=== PATIENT | female | born 1990 | race African-American/Black ===

== ENCOUNTER 2017-01-16 15:10 | Emergency (ER) | payer OTHER ==
[2017-01-16 15:10] VITALS: BP 147/93
[2017-01-16 15:51] LABS: BASO # 0.1 x10^3/uL (0.0-0.2); BASO % 1 % (0-3); EOS % 0 % (0-3); HEMATOCRIT 40.3 % (36.0-47.0); HEMOGLOBIN 13.8 g/dL (12.0-15.5); LYMPH # 1.2 x10^3/uL (1.0-4.8); LYMPH % 10 % (24-48); MEAN CORPUSCULAR HEMOGLOBIN 29 pg (25-35); MEAN CORPUSCULAR HGB CONC 34 g/dL (31-37); MEAN CORPUSCULAR VOLUME 85 fL (79-100); MONO # 0.6 x10^3/uL (0.0-1.1); MONO % 5 % (0-9); NEUT % 83 % (31-73); PLATELET COUNT 227 x10^3/uL (140-400); RED BLOOD COUNT 4.74 x10^6/uL (3.50-5.40); RED CELL DISTRIBUTION WIDTH 13.4 % (11.5-14.5)
[2017-01-16 16:02] LABS: ALBUMIN 3.2 g/dL (3.4-5.0); ALBUMIN/GLOBULIN RATIO 0.7 (1.0-1.7); CALCIUM 8.8 mg/dL (8.5-10.1); CREATININE 0.8 mg/dL (0.6-1.0); GFR 103.3; POTASSIUM 3.8 mmol/L (3.5-5.1); TOTAL PROTEIN 7.5 g/dL (6.4-8.2)
[2017-01-16] MEDS ORDERED: LIDO:MAALOX 1:1 20 ML SINGLE DOSE PO ONE (16:40)
[2017-01-16] MEDS ORDERED: IV NORMAL SALINE 1,000ML 1,000 ML IV SCH (17:27)
--- NOTE | 2017-01-16 17:28 | PHYS DOC ---
General Chief Complaint: ABDOMINAL PAIN Stated Complaint: ABDOMINAL PAIN Time Seen by MD: 16:11 Source: patient Exam Limitations: no limitations Problems: (DIMITRI CAMARENA DO) Time Seen by MD: 19:02 Problems: (MISBAH PATEL MD) History of Present Illness Initial Comments Patient is a 26-year-old female who comes to the ED complaining of epigastric pain. Patient states that for the past 3 days she's had intermittent epigastric pain described as sharp and burning. Patient points to the epigastrium stating that spicy foods tend to make it worse. She relays also the she's had intermittent nausea with a few episodes of vomiting no diarrhea. She states that last March she was diagnosed with gallstones at [facility] and was advised to follow- up with general surgery for outpatient cholecystectomy. Patient states that she chose not to follow-up and has been dealing with intermittent symptoms since that time. Current symptoms are not as severe as they have been in the past but patient states that she can no longer take the discomfort and wanted to come for reevaluation. She's had some burping and burning along with metallic taste in denies relation of symptoms fried or fatty foods. She denies alcohol intake and states she takes ibuprofen on occasion denies recent increase in stress. No pre-arrival treatment, ED vital signs are stable. Timing/Duration: intermittent (3 days) Severity: severe Modifying Factors: worse with eating, worse with movement Associated Symptoms: nausea/vomiting, other (DIMITRI CAMARENA DO) Allergies: Coded Allergies: No Known Drug Allergies (Unverified , 01/16/17) Past Medical History Medical History: other (lupus, rheumatoid arthritis, gallstones) Surgical History: noncontributory (tubal ligation) (DIMITRI CAMARENA DO) Social History Smoker: non-smoker Alcohol: none Drugs: none (DIMITRI CAMARENA DO) Review of Systems Constitutional: denies chills, denies diaphoresis, denies fever, denies malaise Respiratory: denies cough, denies shortness of breath, denies wheezing Cardiovascular: denies chest pain, denies palpitations, denies syncope Gastrointestinal: see HPI Genitourinary: denies dysuria, denies frequency, denies hematuria Psychiatric/Neurological: denies headache, denies numbness, denies paresthesia Hematologic/Lymphatic: denies blood clots, denies easy bleeding, denies easy bruising (DIMITRI CAMARENA DO) Physical Exam General Appearance: no apparent distress, obese Eyes: bilateral eye normal inspection, bilateral eye PERRL, bilateral eye EOMI Ear, Nose, Throat: hearing grossly normal, normal ENT inspection, normal pharynx Neck: non-tender, supple Respiratory: normal breath sounds, no respiratory distress Cardiovascular: normal peripheral pulses, regular rate, rhythm Gastrointestinal: soft (nondistended, epigastric tenderness to palpation without rebound guarding or masses, negative Thakkar, negative McBurney, bowel sounds present and diminished) Back: no CVA tenderness, no vertebral tenderness Extremities: normal range of motion, no calf tenderness Neurologic/Psychiatric: cafeteria cook II-XII nml as tested, no motor/sensory deficits, alert, normal mood/affect, oriented x 3 Skin: normal color, warm/dry (DIMITRI CAMARENA DO) Orders, Labs, Meds No right upper quadrant tenderness, epigastric burning with exacerbation with spicy foods will check labs and trial of GI cocktail hold off on imaging for now. 1728: Lipase normal, and her liver enzymes mildly elevated. No improvement with GI cocktail will check ultrasound of the gallbladder for further evaluation. 1834: Ultrasound is pending patient signed out to Dr Patel see his documentation for results/disposition. (DIMITRI CAMARENA DO) Orders, Labs, Meds Signed PATIENT: ASHIA BELTRÁN ACCOUNT: [id number] : 1990 LOCATION: ER AGE: 26 SEX: F EXAM STATUS: PRE ER ORD. PHYSICIAN: DIMITRI CAMARENA DO REASON: RUQ pain h/o gallstones PROCEDURE: ABDOMEN LTD Realtime , color and spectral duplex DOPPLER ultrasonography of the right upper quadrant was performed. Clinical Indication: Epigastric pain, nausea, vomiting, 3 days, elevated liver enzymes. Comparison: . Findings: The liver is normal in appearance and echogenicity. It measures 17.4 cm. No intrahepatic, biliary ductal dilatation or mass is seen. Multiple echogenic gallstones seen. No gallbladder wall thickening or pericholecystic fluid. Prominent common bile duct measuring 0.7 cm. No ductal stone or definite obstructive mass identified. Sonographic Thakkar's Sign was negative. Hepatopetal flow is seen in the portal veins. The IVC is patent at the level of the liver. The aorta is not well-visualized due to overlying bowel gas. The right kidney is normal in appearance, measuring 10.0 x 5.1 x 5.2 cm in length. No hydronephrosis or perinephric fluid is seen around the right kidney. The pancreatic head and proximal body are unremarkable in appearance. The tail is not well visualized. Impression: 1. Cholelithiasis. No sonographic evidence of acute cholecystitis. 2. Prominent common bile duct with no ductal stone or definite obstructive mass identified. ERCP or MRCP could be obtained for further evaluation if there is continued clinical concern. Electronically signed by: Steven Fox MD (01/16/2017 7:42 PM) [facility] [place] Patient was diagnosed with symptomatic cholelithiasis but given her mildly elevated LFTs she was turned over pending ultrasound to ensure no cholecystitis was she demonstrated no pericholecystic fluid no evidence of gallbladder wall thickening although she has a slight elevated white count of 12,000 and a mildly elevated LFTs there is no obvious signs of cystitis at this time. Patient be precautions to return immediately for any increasing fever increasing pain in the right upper quadrant despite treatment or she has new questions or concerns. I will refer her to a general surgeon to be seen on Tuesday or Tuesday for repeat belly exams as a think that be very appropriate for symptoms not improved. Laboratory Tests Test 01/16/17 15:30 White Blood Count 12.0 x10^3/uL (4.0-11.0) H Red Blood Count 4.74 x10^6/uL (3.50-5.40) Hemoglobin 13.8 g/dL (12.0-15.5) Hematocrit 40.3 % (36.0-47.0) Mean Corpuscular Volume 85 fL (79-100) Mean Corpuscular Hemoglobin 29 pg (25-35) Mean Corpuscular Hemoglobin Concent 34 g/dL (31-37) Red Cell Distribution Width 13.4 % (11.5-14.5) Platelet Count 227 x10^3/uL (140-400) Neutrophils (%) (Auto) 83 % (31-73) H Lymphocytes (%) (Auto) 10 % (24-48) L Monocytes (%) (Auto) 5 % (0-9) Eosinophils (%) (Auto) 0 % (0-3) Basophils (%) (Auto) 1 % (0-3) Neutrophils # (Auto) 10.0 x10^3uL (1.8-7.7) H Lymphocytes # (Auto) 1.2 x10^3/uL (1.0-4.8) Monocytes # (Auto) 0.6 x10^3/uL (0.0-1.1) Eosinophils # (Auto) 0.0 x10^3/uL (0.0-0.7) Basophils # (Auto) 0.1 x10^3/uL (0.0-0.2) Sodium Level 138 mmol/L (136-145) Potassium Level 3.8 mmol/L (3.5-5.1) Chloride Level 105 mmol/L (98-107) Carbon Dioxide Level 29 mmol/L (21-32) Anion Gap 4 (6-14) L Blood Urea Nitrogen 8 mg/dL (7-20) Creatinine 0.8 mg/dL (0.6-1.0) Estimated GFR (Cockcroft-Gault) 103.3 BUN/Creatinine Ratio 10 (6-20) Glucose Level 104 mg/dL (70-99) H Calcium Level 8.8 mg/dL (8.5-10.1) Total Bilirubin 1.0 mg/dL (0.2-1.0) Aspartate Amino Transferase (AST) 149 U/L (15-37) H Alanine Aminotransferase (ALT) 106 U/L (14-59) H Alkaline Phosphatase 113 U/L (46-116) Total Protein 7.5 g/dL (6.4-8.2) Albumin 3.2 g/dL (3.4-5.0) L Albumin/Globulin Ratio 0.7 (1.0-1.7) L Lipase 54 U/L (73-393) L (MISBAH PATEL MD) DIMITRI CAMARENA DO Jan 16, 2017 17:28 MISBAH PATEL MD Jan 16, 2017 19:51
[2017-01-16] MEDS ORDERED: fentaNYL PF 100 MCG/2 ML VIAL IV PRN (17:30)
[2017-01-16] MEDS ORDERED: ONDANSETRON PF 4 MG/2 ML VIAL. IV ONE (17:50)
[2017-01-16] MEDS ORDERED: KETOROLAC 30 MG/ML VIAL. IV ONE (17:50)
--- NOTE | 2017-01-16 19:45 | RAD ---
Realtime , color and spectral duplex DOPPLER ultrasonography of the right upper quadrant was performed. Clinical Indication: Epigastric pain, nausea, vomiting, 3 days, elevated liver enzymes. Comparison: . Findings: The liver is normal in appearance and echogenicity. It measures 17.4 cm. No intrahepatic, biliary ductal dilatation or mass is seen. Multiple echogenic gallstones seen. No gallbladder wall thickening or pericholecystic fluid. Prominent common bile duct measuring 0.7 cm. No ductal stone or definite obstructive mass identified. Sonographic Thakkar's Sign was negative. Hepatopetal flow is seen in the portal veins. The IVC is patent at the level of the liver. The aorta is not well-visualized due to overlying bowel gas. The right kidney is normal in appearance, measuring 10.0 x 5.1 x 5.2 cm in length. No hydronephrosis or perinephric fluid is seen around the right kidney. The pancreatic head and proximal body are unremarkable in appearance. The tail is not well visualized. Impression: 1. Cholelithiasis. No sonographic evidence of acute cholecystitis. 2. Prominent common bile duct with no ductal stone or definite obstructive mass identified. ERCP or MRCP could be obtained for further evaluation if there is continued clinical concern. Electronically signed by: Steven Fox MD (01/16/2017 7:42 PM) [facility]
[2017-01-16] MEDS ORDERED: FAMO-63 PO (19:54)
[2017-01-16] MEDS ORDERED: ONDA8TAB12 PO (19:54)
[2017-01-16] MEDS ORDERED: HYDR-2758 PO (19:54)
== END 2017-01-16 20:15 | disposition home or self-care (01) ==
LOC: ER 15:10
DX: K80.20 Calculus of gallbladder without cholecystitis without obstruction (principal); M32.9 Systemic lupus erythematosus, unspecified; M06.9 Rheumatoid arthritis, unspecified
CPT/HCPCS: 36415; 76705; 80053; 83690; 85025; 96361; 96374; 96375; 99285; J1885; J2405; J3010; J7030

== ENCOUNTER 2017-01-17 17:26 | Inpatient (IN) | payer OTHER ==
[~2017-01-17] VITALS: Ht 157.5 cm; Wt 140.6 kg
[~2017-01-17 17:26] MED LIST: FAMO-63 PO; HYDR-2758 PO; ONDA8TAB12 PO
[2017-01-17 17:52] VITALS: BP 161/90
[2017-01-17 17:55] VITALS: BP 161/90
--- NOTE | 2017-01-17 18:43 | NUR ---
pt directly admitted from Dr Cisneros office PT was seen in ED last night. PT was instructed to f/u with surgeon and went to DR Cisneros office. When getting ready to start IV pt asked when having surgery. Explained to pt that we do not do surgery here and she will need to have that at [facility]. Explained to pt that it is an easy process and she will go straight to bed if surgery needed. Also that surgeon and she could see her in am and make that decision. PT said there is no reason for her to be here. Went on to explain that she might not need surgery and was admitted for pancreatitis. PT adament that she does not want to stay. Called Blayne he recommended her to go to [facility] ED, unsure how pt was directly admitted to here. PT signed ama and left with boyfriend ambulatory. Kimmy KARIMI
== END 2017-01-17 19:00 | disposition left against medical advice (07) | DRG 444 ==
LOC: 1 SOUTH 17:26
PROVIDERS: ADMIT Family Medicine; ATTEND Family Medicine
DX: K80.00 Calculus of gallbladder with acute cholecystitis without obstruction (principal); K85.90 Acute pancreatitis without necrosis or infection, unspecified; K86.1 Other chronic pancreatitis

== ENCOUNTER 2017-06-07 19:22 | Emergency (ER) | payer OTHER ==
[~2017-06-07] VITALS: Ht 157.5 cm; Wt 140.6 kg
[2017-06-07] MEDS ORDERED: ONDANSETRON PF 4 MG/2 ML VIAL. IV ONE (20:00)
[2017-06-07] MEDS ORDERED: IOHEXOL 300 MG/ML 75 ML VIAL. IV ONE (20:30)
--- NOTE | 2017-06-07 21:18 | RAD ---
CT abdomen and pelvis with contrast TECHNIQUE: Helical CT imaging of the abdomen and pelvis was acquired with 75 mL Omnipaque 300 intravenous contrast. HISTORY: Right-sided abdominal pain. Right lower quadrant pain. Abdomen findings: Cholecystectomy. Liver, pancreas, spleen, kidneys and adrenal glands are unremarkable. No obstruction or inflammation of the GI tract. The appendix is negative. No abdominal fluid or adenopathy. Pelvis findings: There is mild pelvic fluid dependently and at the right adnexa associated with a right adnexal 3 cm hypodense lesion possibly an ovarian cyst. Fallopian tubal ligation clips. Left ovary, uterus, bladder, rectum and bones are unremarkable. IMPRESSION: 1. 3 cm right adnexal hypodensity may represent an ovarian cyst. Mild pelvic fluid. This could be further characterized by pelvic sonography. 2. The appendix is negative. Exposure: One or more of the following individualized dose reduction techniques were utilized for this examination: 1. Automated exposure control 2. Adjustment of the mA and/or kV according to patient size 3. Use of iterative reconstruction technique Electronically signed by: Tommy Friedman MD (06/07/2017 9:14 PM) [facility]
[2017-06-07 21:57] LABS: BILIRUBIN,URINE NEG (NEG); CLARITY,URINE HAZY; COLOR,URINE YELLOW; GLUCOSE,URINE NEG (NEG); UROBILINOGEN,URINE 0.2 mg/dL (0.2 mg/dL)
[2017-06-07 21:58] LABS: BACTERIA,URINE 0 /HPF (0-FEW); NITRITE,URINE NEG (NEG); RBC,URINE OCC /HPF (0-2); SQUAMOUS EPITHELIAL CELL,UR MANY /LPF; WBC,URINE OCC /HPF (0-4)
[2017-06-07] MEDS ORDERED: KETOROLAC 30 MG/ML VIAL. IV ONE (22:00)
[2017-06-07 22:09] LABS: U PREG PATIENT NEGATIVE (NEG)
[2017-06-07] MEDS ORDERED: HYDROcodone/APAP 5/325MG 1 TAB TABLET PO ONE (22:15)
[2017-06-07] MEDS ORDERED: ONDA4TAB10 SL (22:17)
[2017-06-07] MEDS ORDERED: HYDR-971 PO (22:17)
--- NOTE | 2017-06-07 22:17 | PHYS DOC ---
Past History Past Medical History: Other Past Surgical History: Tubal ligation Alcohol Use: None Drug Use: None Adult General Chief Complaint Chief Complaint: ABDOMINAL PAIN HPI HPI Patient is a 27-year-old female presenting to the emergency department for evaluation of right lower quadrant abdominal pain that has been an ongoing issue for months however she says is worse today and she called her primary care provider there told her come to the emergency department to rule out appendicitis. She says it is sharp and associated with nausea but no fevers chills vomiting diarrhea constipation dysuria hematuria vaginal bleeding or vaginal discharge. She has had a cholecystectomy but no other abdominal surgeries. She does have issues with ovarian cyst. She has not taken anything for pain and she is in no obvious distress with normal vital signs. Review of Systems Review of Systems Constitutional: Denies fever or chills [] Respiratory: Denies cough or shortness of breath [] Cardiovascular: No additional information not addressed in HPI [] GI: + abdominal pain, nausea. No vomiting, bloody stools or diarrhea [] : Denies dysuria or hematuria [] Musculoskeletal: Denies back pain or joint pain [] Neurologic: Denies headache, focal weakness or sensory changes [] All other systems were reviewed and found to be within normal limits, except as documented in this note. Current Medications Current Medications Current Medications Medications (Trade) Dose Ordered Sig/[facility] Start Time Stop Time Status Last Admin Dose Admin Acetaminophen/ Hydrocodone Bitart (Lortab 5/325) 2 tab 1X ONCE 06/07/17 22:15 06/07/17 22:16 Fentanyl Citrate (Fentanyl 2ml Vial) 75 mcg 1X ONCE 06/07/17 20:00 06/07/17 20:01 DC 06/07/17 20:33 75 MCG Iohexol (Omnipaque 300 Mg/ml) 75 ml 1X ONCE 06/07/17 20:30 06/07/17 20:31 DC 06/07/17 20:37 75 ML Ketorolac Tromethamine (Toradol) 30 mg 1X ONCE 06/07/17 22:00 06/07/17 22:01 DC 06/07/17 21:37 30 MG Ondansetron HCl (Zofran) 4 mg 1X ONCE 06/07/17 20:00 06/07/17 20:01 DC 06/07/17 20:32 4 MG Allergies Allergies Allergies Coded Allergies Type Severity Reaction Last Updated Verified No Known Drug Allergies 01/16/17 No Physical Exam Physical Exam Constitutional: Well developed, well nourished, no acute distress, non-toxic appearance. [] Cardiovascular:Heart rate regular rhythm, no murmur [] Lungs & Thorax: Bilateral breath sounds clear to auscultation [] Abdomen: Bowel sounds normal, soft, positive right lower quadrant tenderness over McBurney's in addition to right adnexal pain, no rebound or guarding, no masses, no pulsatile masses. [] Skin: Warm, dry, no erythema, no rash. [] Back: No tenderness, no CVA tenderness. [] Extremities: No tenderness, no cyanosis, no clubbing, ROM intact, no edema. [] Neurologic: Alert and oriented X 3, normal motor function, normal sensory function, no focal deficits noted. [] Current Patient Data Vital Signs Vital Signs Date Time Temp Pulse Resp B/P (MAP) Pulse Ox O2 Delivery O2 Flow Rate FiO2 06/07/17 20:33 18 98 Lab Results Laboratory Tests Test 06/07/17 21:15 Urine Collection Type Unknown Urine Color Yellow Urine Clarity Hazy Urine pH 5.0 Urine Specific [place] 1.025 Urine Protein Neg (NEG-TRACE) Urine Glucose (UA) Neg mg/dL (NEG) Urine Ketones (Stick) Trace mg/dL (NEG) Urine Blood Neg (NEG) Urine Nitrite Neg (NEG) Urine Bilirubin Neg (NEG) Urine Urobilinogen Dipstick 0.2 mg/dL (0.2 mg/dL) Urine Leukocyte Esterase Neg (NEG) Urine RBC Occ /HPF (0-2) Urine WBC Occ /HPF (0-4) Urine Squamous Epithelial Cells Many /LPF Urine Bacteria 0 /HPF (0-FEW) Urine Mucus Mod /LPF Urine Test Negative (NEG) EKG EKG [] Radiology/Procedures Radiology/Procedures CT abdomen and pelvis with contrast TECHNIQUE: Helical CT imaging of the abdomen and pelvis was acquired with 75 mL Omnipaque 300 intravenous contrast. HISTORY: Right-sided abdominal pain. Right lower quadrant pain. Abdomen findings: Cholecystectomy. Liver, pancreas, spleen, kidneys and adrenal glands are unremarkable. No obstruction or inflammation of the GI tract. The appendix is negative. No abdominal fluid or adenopathy. Pelvis findings: There is mild pelvic fluid dependently and at the right adnexa associated with a right adnexal 3 cm hypodense lesion possibly an ovarian cyst. Fallopian tubal ligation clips. Left ovary, uterus, bladder, rectum and bones are unremarkable. IMPRESSION: 1. 3 cm right adnexal hypodensity may represent an ovarian cyst. Mild pelvic fluid. This could be further characterized by pelvic sonography. 2. The appendix is negative. Exposure: One or more of the following individualized dose reduction techniques were utilized for this examination: 1. Automated exposure control 2. Adjustment of the mA and/or kV according to patient size 3. Use of iterative reconstruction technique Electronically signed by: Tommy Friedman MD (06/07/2017 9:14 PM) [facility] DICTATED AND SIGNED BY: TOMMY FRIEDMAN MD DATE: 06/07/172107 Course & Med Decision Making Course & Med Decision Making Patient with right lower quadrant pain likely a trivial to the ovarian cyst seen on CT. No signs of appendicitis on CT. Pain is much improved and her repeat abdominal exam is benign with no rebound or guarding. I do not suspect ovarian torsion or other acute surgical pathology at this time given how well she appears with a benign abdominal exam. Given patient appears well with normal vital signs benign physical exam and workup she'll be discharged in stable condition told to follow with primary care provider within 2-3 days and come back to the ED sooner with worsening pain fevers vomiting or other general concerns. Patient aware and agreeable with plan and verbalized understanding of the above instructions. Dragon Disclaimer Dragon Disclaimer This electronic medical record was generated, in whole or in part, using a voice recognition dictation system. Departure Departure: Impression: Primary Impression: Abdominal pain Additional Impression: Ovarian cyst Disposition: 01 HOME, SELF-CARE Condition: STABLE Referrals: HARLAN LÓPEZ MD (PCP) Patient Instructions: Ovarian Cyst Additional Instructions: Take 400 mg of ibuprofen every 6 hours and the [place] for breakthrough pain. Follow with your primary care provider and optical coating technician and come back to the ED sooner with worsening pain fevers vomiting or other general concerns. Scripts Ondansetron (ZOFRAN ODT) 4 Mg Tab.rapdis 1 TAB SL Q8HRS, #10 TAB Prov: COURTNEY CARRASCO DO 06/07/17 Hydrocodone Bit/Acetaminophen (NORCO 5-325 TABLET) 1 Each Tablet 1 TAB PO PRN Q6HRS Y for PAIN, #14 TAB 0 Refills Prov: COURTNEY CARRASCO DO 06/07/17 Problem Qualifiers Primary Impression: Abdominal pain Abdominal location: right lower quadrant Qualified Codes: R10.31 - Right lower quadrant pain COURTNEY CARRASCO DO Jun 07, 2017 22:17
[2017-06-07 22:36] VITALS: BP 138/71
== END 2017-06-07 22:36 | disposition home or self-care (01) ==
LOC: ER 19:22
DX: N83.201 Unspecified ovarian cyst, right side (principal); Z98.51 Tubal ligation status
CPT/HCPCS: 74177; 81001; 81025; 96374; 96375; 99285; J1885; J2405; J3010; Q9967